=== PATIENT | female | born 1955 | race Caucasian/White ===

== ENCOUNTER 2021-12-18 11:35 | Emergency (ER) | payer MEDICARE, OTHER ==
[~2021-12-18] VITALS: Ht 157.5 cm; Wt 103.4 kg
[~2021-12-18 11:35] MED LIST: ALLOPURINOL100 MG PO; MELOXICAM15 MG PO; MONTELUKAST SOD10 MG PO
[2021-12-18] MEDS ORDERED: AZITHROMYCIN250 MG (16:32)
== END 2021-12-18 14:27 | disposition home or self-care (01) ==
LOC: ED 11:35
DX: U07.1 COVID-19 (principal); Z23 Encounter for immunization; J44.9 Chronic obstructive pulmonary disease, unspecified; E11.9 Type 2 diabetes mellitus without complications; Z88.0 Allergy status to penicillin; Z88.5 Allergy status to narcotic agent; Z88.8 Allergy status to other drugs, medicaments and biological substances; Z79.899 Other long term (current) drug therapy
CPT/HCPCS: 99283-25; M0247

== ENCOUNTER 2024-05-10 14:17 | Emergency (ER) | payer MEDICARE, OTHER ==
[~2024-05-10] VITALS: Ht 157.5 cm; Wt 91.3 kg
[~2024-05-10 14:17] MED LIST changes: +ACETAMINOPHEN500 MG PO; +AZITHROMYCIN250 MG; +DULOXETINE HCL60 MG PO; +LEVOTHYROXINE50 MC1 PO; +OXYCODONE HCL5 MG PO; +SENNA LAX8.6 MG PO; +SINGULAIR10 MG PO; +TRAMADOL HCL50 MG PO; +VIT C-ROSE HIP500 MG PO; +XARELTO10 MG PO; +[UNRECOGNIZED DRUG - CODE] PO
[2024-05-10] MEDS ORDERED: diphenhydrAMINE HCL 50 MG CAP PO ONE (15:45)
[2024-05-10] MEDS ORDERED: HYDROCODONE/ACETA 5/325 TAB PO ONE (15:45)
[2024-05-10] MEDS ORDERED: methocarbamoL 500 MG TABLET PO ONE (15:45)
[2024-05-10] MEDS ORDERED: KETOROLAC TROMETHAMINE 30 MG/ML VIAL IM ONE (15:45)
[2024-05-10] MEDS ORDERED: METHOCARBAMOL750 MG PO (16:53)
[2024-05-10] MEDS ORDERED: HYDROCODON-ACE1 EA10 PO (16:53)
[2024-05-10 17:00] VITALS: BP 124/90
== END 2024-05-10 17:00 | disposition home or self-care (01) ==
LOC: ED 14:17
DX: M62.838 Other muscle spasm (principal); E11.9 Type 2 diabetes mellitus without complications; J44.9 Chronic obstructive pulmonary disease, unspecified; G43.909 Migraine, unspecified, not intractable, without status migrainosus; Z88.0 Allergy status to penicillin; Z88.5 Allergy status to narcotic agent; Z88.2 Allergy status to sulfonamides; Z88.1 Allergy status to other antibiotic agents; Z91.041 Radiographic dye allergy status; Z79.01 Long term (current) use of anticoagulants; Z79.890 Hormone replacement therapy; Z79.899 Other long term (current) drug therapy
CPT/HCPCS: J1885; Q0163